=== PATIENT | female | born 1970 | race Caucasian/White ===

== ENCOUNTER 2018-12-03 08:43 | Emergency (ER) | payer OTHER ==
[2018-12-03 09:00] VITALS: BP 144/92; PULSE 75; TEMP 97.7; BMI 29.9
--- NOTE | 2018-12-03 09:19 | PDOC ---
History of Present Illness - General Chief Complaint: Allergic Reaction Stated Complaint: ALLERGIC REACTION Time Seen by Provider: 12/03/18 09:05 Past History - Travel Traveled outside of the country in the last 30 days: Yes If so, where?: Per Close contact w/someone who was outside of country & ill: No - Past Medical History Allergies/Adverse Reactions: Allergies Allergy/AdvReac Type Severity Reaction Status Date / Time azithromycin Allergy HIVES, Verified 12/03/18 08:55 SWELLING levofloxacin [Levofloxacin] Allergy HIVES, Verified 12/03/18 08:55 SWELLING QUTAL-APAP Allergy HIVES, Uncoded 12/03/18 08:55 SWELLING Home Medications: Ambulatory Orders Diphenhydramine HCl [Benadryl -] 25 mg PO Q8H #21 capsule 12/03/18 Loratadine [Claritin -] 10 mg PO DAILY #30 tablet 12/03/18 Methylprednisolone [Medrol Dose Lacho] 4 mg PO ASDIR #21 tablet 12/03/18 Anemia: No Asthma: No Cancer: No Cardiac Disorders: No CVA: No COPD: No CHF: No Dementia: No Diabetes: No GI Disorders: No Disorders: No HTN: Yes (border line) Hypercholesterolemia: No Liver Disease: No Seizures: No Thyroid Disease: No - Surgical History Neurologic Surgery: Yes (DISC SURGERY) - Suicide/Smoking/Psychosocial Hx Smoking Status: No Smoking History: Never smoked Number of Cigarettes Smoked Daily: 0 Hx Alcohol Use: No Drug/Substance Use Hx: No Substance Use Type: None Hx Substance Use Treatment: No Review of Systems - Review of Systems Able to Perform ROS?: Yes Comments:: 12/03/18 09:36 CONSTITUTIONAL: Absent: fever, chills, diaphoresis, generalized weakness, malaise, loss of appetite HEENT: Absent: rhinorrhea, nasal congestion, throat pain, throat swelling, difficulty swallowing, mouth swelling, ear pain, eye pain, visual Changes MUSCULOSKELETAL: Absent: myalgia, arthralgia, joint swelling SKIN: Present: itching, rash Absent: pallor NEUROLOGIC: Absent: headache, focal weakness or paresthesias, dizziness, unsteady gait, seizure, mental status changes, bladder or bowel incontinence PSYCHIATRIC: Absent: anxiety, depression, suicidal or homicidal ideation, hallucinations. Is the patient limited Slovenian proficient: No *Physical Exam - Vital Signs Last Vital Signs Temp Pulse Resp BP Pulse Ox 97.7 F 75 16 144/92 75 L 12/03/18 08:56 12/03/18 08:56 12/03/18 08:56 12/03/18 08:56 12/03/18 08:56 - Physical Exam Comments: 12/03/18 09:37 GENERAL: Well developed, well nourished. Awake and alert. No acute distress. HEENT: Normocephalic, atraumatic. PERRLA, EOMI. No conjunctival pallor. Sclera are non- icteric. Moist mucous membranes. Oropharynx is clear. NECK: Supple. Full ROM. No JVD. CARDIOVASCULAR: Regular rate and rhythm. No murmurs, rubs, or gallops. Distal pulses are 2+ and symmetric. PULMONARY: No evidence of respiratory distress. Lungs clear to auscultation bilaterally. No wheezing, rales or rhonchi. MUSCULOSKELETAL Normal range of motion at all joints. No bony deformities or tenderness. No CVA tenderness. EXTREMITIES: No cyanosis. No clubbing. No edema. No calf tenderness. SKIN: Erythematous, puritic patches to the superior chest wall, L flank and wrists b/ l. Warm and dry. Normal capillary refill. No jaundice. NEUROLOGICAL: Alert, awake, appropriate. Cranial nerves 2-12 intact. No deficits to light touch and temperature in face, upper extremities and lower extremities. No motor deficits in the in face, upper extremities and lower extremities. Normoreflexic in the upper and lower extremities. Normal speech. Toes are down- going bilaterally. Gait is normal without ataxia. PSYCHIATRIC: Cooperative. Good eye contact. Appropriate mood and affect. Medical Decision Making - Medical Decision Making 12/03/18 10:30 The patient is a 48-year-old female with no past medical history who presents to the ER today for a rash to her chest arms and flank. She states that she was on a flight home from [place] yesterday when the itching started. She states states that she ate yellow cheese and the itching started. Denies fevers, chills, muscle aches, weakness, hives, nausea, vomiting, diarrhea, new medication use. She is taking Claritin at home with slight relief of her symptoms. A/P: Rash Rash appears to be pruritic and allergic in nature with patches to the chest, arms and flank. Patient given a dose of steroids and Benadryl in the ER for symptomatic relief Patient is afebrile, airway is open and clear and maintained with no posterior pharynx swelling We will discharge home with Benadryl, Claritin and a Medrol Dosepak Dermatology referral given. I discussed the physical exam findings, ancillary test results and final diagnoses with the patient. I answered all of the patient's questions. The patient was satisfied with the care received and felt comfortable with the discharge plan and treatment plan. The Patient agrees to follow up with the primary care physician/specialist within 24-72 hours. Return precautions were given. *DC/Admit/Observation/Transfer Diagnosis at time of Disposition: Allergic reaction Qualifiers: Encounter type: initial encounter Qualified Code(s): T78.40XA - Allergy, unspecified, initial encounter - Discharge Dispostion Disposition: HOME Condition at time of disposition: Stable Decision to Admit order: No - Prescriptions Prescriptions: Diphenhydramine HCl [Benadryl -] 25 mg PO Q8H #21 capsule Loratadine [Claritin -] 10 mg PO DAILY #30 tablet Methylprednisolone [Medrol Dose Lacho] 4 mg PO ASDIR #21 tablet - Referrals Referrals: Yoselin Kerns MD [Staff Physician] - - Patient Instructions Printed Discharge Instructions: DI for General Allergic Reactions Additional Instructions: You are having an allergic reaction which is presenting itself as a rash. Please take the Medrol Dosepak starting tomorrow as directed. Please take the Benadryl every 8 hours until your symptoms have resolved. Continue to take your Claritin as previously directed. Please follow-up with dermatology if your symptoms are not improving. A referral has been provided. Return to the ER for worsening rash, difficulty breathing, shortness of breath, wheezing, or if you have any changes in your symptoms. - Post Discharge Activity Forms/Work/School Notes: Back to Work
[2018-12-03] MEDS ORDERED: DEXAMETHASONE LIQUID 0.5 MG/5 ML 240 ML BULK BOTTLE PO ONE (09:30)
[2018-12-03] MEDS ORDERED: diphenhydrAMINE HCL 25 MG CAPSULE (FP) PO ONE ×2 (09:30→09:36)
[2018-12-03] MEDS ORDERED: DEXAMETHASONE SOD PHOSPHATE 10 MG/1 ML VIAL ONE (09:36)
== END 2018-12-03 09:52 | disposition home or self-care (01) ==
LOC: JERFT 08:43
DX: T78.40XA Allergy, unspecified, initial encounter (principal)
CPT/HCPCS: 99281-25

== ENCOUNTER 2019-06-13 07:40 | Emergency (ER) | payer OTHER ==
[2019-06-13 08:08] VITALS: BMI 29.9
[2019-06-13] MEDS ORDERED: ASPIRIN 81 MG CHEWABLE TABLETS PO ONE (08:10)
[2019-06-13] MEDS ORDERED: ASPIRIN 81 MG CHEWABLE TABLETS ONE (08:12)
[2019-06-13] MEDS ORDERED: LORazepam 2 MG/ML SDV VIAL ONE ×2 (08:12→09:12)
--- NOTE | 2019-06-13 08:17 | PDOC ---
History of Present Illness - General Chief Complaint: Pain Stated Complaint: LT ARM PAIN Time Seen by Provider: 06/13/19 07:51 History Source: Patient, Family (Two sons present at bedside.) Exam Limitations: No Limitations - History of Present Illness Initial Comments: HPI: 49 y/o female presenting to [facility] ER complaining of shortness of breath, paresthesias in right and left hands, as well as chest and left arm pain. Symptoms started suddenly this morning after receiving a troubling phone call from her home country of [place]. After the phone call she ran to her son's room who called 911. The pt's symptoms have improved as her breathing has slowed. Received ASA from EMS prior to arrival. On arrival, the pt continues to feel anxious with right hand cramping and left upper back pain. Son at bedside reports a similar episode approx. one year ago. Emergent evaluation at that time as unrevealing. Medical Hx: - Reports recent diagnosis of flu, but no symptoms in the past week - HTN, borderline but not managed with medication Review of Systems: In addition to that documented in the HPI above, the additional ROS was obtained : Constitutional- Denies fevers or chills Head- Denies vision changes ENMT- Denies sore throat CV- Per HPI Resp- Denies coughing GI- Denies vomiting or diarrhea - Denies painful urination MSK- Denies recent trauma Skin- Denies new rashes Neuro- Per HPI Endocrine- Denies polyuria Heme- Denies bleeding or bruising Physical Examination: Constitutional- Well-developed, well-nourished adult female in no acute distress or obvious discomfort. Found semi-fowlers on hospital bed. Answered all questions appropriately and completely. Head- Normocephalic. No obvious external signs of trauma. Eyes- Sclerae white. Conjunctiva moist and not injected. Ears- Hearing grossly intact. Nose- No nasal discharge. Neck- Supple, trachea is midline. Cardiovascular / Chest- Tachycardic rate with regular rhythm. No murmur, rubs, clicks, or gallops. Peripheral pulses- radial pulses full. Respiratory- Breathing unlabored but tachypneic. Equal chest rise and fall. Clear to auscultation bilaterally. No stridor, no wheezing, no rhonchi. Gastrointestinal- abdomen is soft, non-tender, non-distended. Neuro- Alert and oriented x4. Moving all four extremities spontaneously. Right hand mildly tremulous. Skin- Warm, dry, and intact. Psych- Affect- anxious. Mood- normal. Speech was non-labored, non-pressured. Well groomed. MDM: *Reviewed vital signs, nursing notes, and prior visit documentation (if available). HEART Score for Major Cardiac Events RESULT SUMMARY: 2 points Low Score (0-3 points) Risk of MACE of 0.9-1.7%. INPUTS: History > 0 = Slightly suspicious EKG > 0 = Normal Age > 1 = 45-64 Risk factors > 1 = 1-2 risk factors Initial troponin > 0 = ?normal limit 49 y/o female presenting with shortness of breath, chest and arm pain, and bilateral paresthesias after emotionally charged telephone call. Afebrile. Vitals remarkable for tachycardia without hypotension. Normoxic on room air. Physical exam as described above. Suspect likely anxiety symptoms. Low suspicion for ACS, PE, or other pulmonary etiology. EKG unremarkable for ischemic findings. Initial and repeat troponins not elevated. Given ASA by EMS. Ordered Ativan for symptom improvement. Pt reassessed. Reports feeling much better. Symptoms have completely resolved. Will discharge home with PCP follow up. Discussed lab results with pt and pts son. Answered all questions. Provided return precautions. Pt and son expressed verbal understanding and agreement with plan to discharge home with outpatient follow up. Provided copies of today s results. Tristian Blackwood M.D., PGY2 Emergency Medicine Resident Past History - Past Medical History Allergies/Adverse Reactions: Allergies Allergy/AdvReac Type Severity Reaction Status Date / Time azithromycin Allergy HIVES, Verified 12/03/18 08:55 SWELLING levofloxacin [Levofloxacin] Allergy HIVES, Verified 12/03/18 08:55 SWELLING QUTAL-APAP Allergy HIVES, Uncoded 12/03/18 08:55 SWELLING Home Medications: Ambulatory Orders Diphenhydramine HCl [Benadryl -] 25 mg PO Q8H #21 capsule 12/03/18 Loratadine [Claritin -] 10 mg PO DAILY #30 tablet 12/03/18 Methylprednisolone [Medrol Dose Lacho] 4 mg PO ASDIR #21 tablet 12/03/18 Anemia: No Asthma: No Cancer: No Cardiac Disorders: No CVA: No COPD: No CHF: No Dementia: No Diabetes: No GI Disorders: No Disorders: No HTN: Yes (border line) Hypercholesterolemia: No Liver Disease: No Seizures: No Thyroid Disease: No - Surgical History Neurologic Surgery: Yes (DISC SURGERY) - Psycho Social/Smoking Cessation Hx Smoking Status: No Smoking History: Never smoked Have you smoked in the past 12 months: No Number of Cigarettes Smoked Daily: 0 Hx Alcohol Use: No Drug/Substance Use Hx: No Substance Use Type: None Hx Substance Use Treatment: No *Physical Exam - Vital Signs Last Vital Signs Temp Pulse Resp BP Pulse Ox 97.7 F 112 H 30 H 123/83 100 06/13/19 08:05 06/13/19 08:05 06/13/19 08:05 06/13/19 08:05 06/13/19 08:05 ED Treatment Course - LABORATORY CBC & Chemistry Diagram: 06/13/19 08:30 06/13/19 08:30 Discharge - Discharge Information Problems reviewed: Yes Clinical Impression/Diagnosis: Shortness of breath, Tachycardia, Anxiety, Paresthesia and pain of both upper extremities Condition: Improved Disposition: HOME - Admission No - Follow up/Referral Referrals: Libertad Alfonso MD [Primary Care Provider] - - Patient Discharge Instructions Patient Printed Discharge Instructions: DI for Atypical Chest Pain, DI for Anxiety -- Adult Additional Instructions: You were seen today for shortness of breath, chest and arm pain, and numbness in your hands. Your EKG and blood tests were normal. These symptoms were likely caused by anxiety from the phone call. Follow up with your primary care doctor within the next 2-3 days. You will need to call to make an appointment. The number is included in this packet. A copy of todays results are attached to this packet. Take it to the appointment so your doctor can review them. Go to the nearest emergency department if your condition worsens or you feel like you need additional emergency evaluation. Watch for worsening chest pain, shortness of breath, and/or arm pain. Print Language: BULGARIAN - Post Discharge Activity
[2019-06-13 08:56] LABS: BASO % 0.7 % (0-2.0); EOS % 0.5 % (0-4.5); HEMATOCRIT 35.2 % (32.4-45.2); HEMOGLOBIN 12.2 GM/dL (10.7-15.3); LYMPH % 28.6 % (8-40); MCH 26.2 pg (25.7-33.7); MCHC 34.6 g/dl (32.0-36.0); MEAN CELL VOLUME 75.7 fl (80-96); MEAN PLT VOLUME 8.7 fl (7.5-11.1); MONO % 6.2 % (3.8-10.2); PLATELET COUNT 310 K/MM3 (134-434); RBC 4.65 M/mm3 (3.60-5.2); RDW 14.5 % (11.6-15.6)
[2019-06-13] MEDS ORDERED: SODIUM CHLORIDE 1,000 ML IV STA (09:15)
--- NOTE | 2019-06-13 09:15 | PDOC ---
Attending Attestation - Resident Resident Name: Tristian Blackwood - ED Attending Attestation I have performed the following: I have examined & evaluated the patient, The case was reviewed & discussed with the resident, I agree w/resident's findings & plan, Exceptions are as noted - HPI HPI: 06/13/19 09:12 49 F with no PMH presents to ED with SOB and bilateral arm paresthesias. Pt states that this morning she received a distressing phone call. Shortly afterwards, she began to feel SOB and breathe very quickly. This was followed by paresthesias in both arms and bilateral hand trembling. Pt denies CP. Upon arrival to ED, pt reports improvement in her symptoms. Her breathing has improved, as have the paresthesias. However, she reports persistent trembling. Pt denies any leg swelling. Denies any recent travel/immobilization. No F/C. - Physicial Exam PE: 06/13/19 09:13 "GENERAL: Awake, alert, and fully oriented, in no acute distress. HEAD: No signs of trauma EYES: PERRLA, EOMI, sclera anicteric, conjunctiva clear ENT: Auricles normal inspection, hearing grossly normal, nares patent, oropharynx clear without exudates. Moist mucosa NECK: Nontender, no stepoffs, Normal ROM, supple, no lymphadenopathy, JVD, or masses LUNGS: Breath sounds equal, clear to auscultation bilaterally. No wheezes, and no crackles HEART: Regular rate and rhythm, normal S1 and S2, no murmurs, rubs or gallops ABDOMEN: Soft, nontender, normoactive bowel sounds. No guarding, no rebound. No masses EXTREMITIES: Normal range of motion, no edema. No clubbing or cyanosis. No cords, erythema, or tenderness NEUROLOGICAL: Cranial nerves II through XII intact. 5/5 strength and sensation in all extremities, Normal speech, normal gait, normal cerebellar function SKIN: Warm, Dry, normal turgor, no rashes or lesions noted. - Medical Decision Making 06/13/19 09:14 49 F with SOB and BUE paresthesias, likely panic attack. EKG sinus tachy with no ischemic changes. - labs - IVF, ativan - Reassess 06/13/19 11:56 Labs wnl Pt reassessed - now feels completely better, back to baseline Pt is well appearing, with normal vitals. Clinically stable for DC at this time. I discussed the physical exam findings, ancillary test results and final diagnoses with the patients family. I answered all of their questions. The family was satisfied with the care received and felt comfortable with the discharge plan and treatment plan. They agree to follow up with the primary care physician within 24-72 hours.
[2019-06-13 09:16] LABS: ALK PHOS 60 U/L (45-117); ANION GAP 9 MMOL/L (8-16); BILIRUBIN,TOTAL 0.6 mg/dL (0.2-1); BLOOD UREA NITROGEN 7.4 mg/dL (7-18); CALCIUM 8.6 mg/dL (8.5-10.1); CHLORIDE 109 mmol/L (98-107); CO2 22 mmol/L (21-32); CREATININE 0.9 mg/dL (0.55-1.3); GLUCOSE,RANDOM 102 mg/dL (74-106); POTASSIUM 3.5 mmol/L (3.5-5.1); SGOT/AST 16 U/L (15-37); SGPT/ALT 17 U/L (13-61); SODIUM 140 mmol/L (136-145); TOT PROT 7.5 g/dl (6.4-8.2)
[2019-06-13 12:28] VITALS: TEMP 98.5
[2019-06-13 13:03] VITALS: BP 126/78; PULSE 89
== END 2019-06-13 13:03 | disposition home or self-care (01) ==
LOC: JER 07:40
PROC: 3E0337Z Introduction of Electrolytic and Water Balance Substance into Peripheral Vein, Percutaneous Approach (ICD-10-PCS; principal; 2019-06-13)
PROC: 3E033NZ Introduction of Analgesics, Hypnotics, Sedatives into Peripheral Vein, Percutaneous Approach (ICD-10-PCS; 2019-06-13)
DX: F41.9 Anxiety disorder, unspecified (principal); F41.0 Panic disorder [episodic paroxysmal anxiety]; I10 Essential (primary) hypertension; Z88.1 Allergy status to other antibiotic agents
CPT/HCPCS: 36415; 80053; 84484; 85025; 96361; 96374; 96376; 99284-25; J7030

== ENCOUNTER 2020-09-28 04:38 | Day surgery (SDC) | payer OTHER ==
[2020-09-25 14:35] VITALS: BMI 26.2
[2020-09-28] MEDS ORDERED: LIDOCAINE 1% P/F 10 MG/ML VIAL INF ONE (10:56)
[2020-09-28] MEDS ORDERED: BUPIVACAINE HCL/PF 0.5% (5 MG/ML) 30 ML VIAL IJ ONE (10:57)
[2020-09-28] MEDS ORDERED: IOHEXOL 180 MG/1 ML ML IJ ONE (10:57)
[2020-09-28] MEDS ORDERED: BUPIVACAINE HCL/PF 0.75% 10 ML VIAL NR ONE (10:57)
[2020-09-28] MEDS ORDERED: ACETAMINOPHEN 325 MG TABLET (FP) ONE (12:25)
[2020-09-28 12:47] VITALS: BP 123/86; PULSE 73; TEMP 98
== END 2020-09-28 12:40 | disposition home or self-care (01) ==
LOC: JASU-SURG 04:38
PROVIDERS: ATTEND Pain Medicine Pain Medicine
PROC: 3E0R3BZ Introduction of Anesthetic Agent into Spinal Canal, Percutaneous Approach (ICD-10-PCS; 2020-09-28)
PROC: 3E0R33Z Introduction of Anti-inflammatory into Spinal Canal, Percutaneous Approach (ICD-10-PCS; principal; 2020-09-28 15:30)
DX: M47.812 Spondylosis without myelopathy or radiculopathy, cervical region (principal)
CPT/HCPCS: 76000-TC-FY; 81025

== ENCOUNTER 2020-10-19 06:08 | Day surgery (SDC) | payer OTHER ==
[2020-10-18 12:40] VITALS: BMI 29.0
[2020-10-19] MEDS ORDERED: IOHEXOL 180 MG/1 ML ML IJ ONE (09:39)
[2020-10-19] MEDS ORDERED: BUPIVACAINE HCL/PF 0.5% (5MG/ML) 10 ML VIAL NR ONE (09:39)
[2020-10-19 10:48] VITALS: BP 135/85; PULSE 66; TEMP 97.6
== END 2020-10-19 11:39 | disposition home or self-care (01) ==
LOC: JASU-SURG 06:08
PROVIDERS: ATTEND Pain Medicine Pain Medicine
PROC: BR14YZZ Fluoroscopy of Cervical Facet Joint(s) using Other Contrast (ICD-10-PCS; 2020-10-19)
PROC: 3E0T3BZ Introduction of Anesthetic Agent into Peripheral Nerves and Plexi, Percutaneous Approach (ICD-10-PCS; principal; 2020-10-19 09:30)
DX: M47.812 Spondylosis without myelopathy or radiculopathy, cervical region (principal)
CPT/HCPCS: 76000-TC-FY; 81025

== ENCOUNTER → 2021-10-10 | Day surgery (SDC) | payer OTHER | END | disposition home or self-care (01) | LOC: FMAMMOTONE 08:43 | PROVIDERS: ATTEND Family Medicine | PROC: 0HBU3ZX Excision of Left Breast, Percutaneous Approach, Diagnostic (ICD-10-PCS; principal; 2021-10-10) | DX: N60.12 Diffuse cystic mastopathy of left breast (principal); N60.32 Fibrosclerosis of left breast; N60.82 Other benign mammary dysplasias of left breast; N64.89 Other specified disorders of breast; R92.0 Mammographic microcalcification found on diagnostic imaging of breast | CPT/HCPCS: 19081; 76098-TC-FY; 88305-TC; A4648 ==